=== PATIENT | male | born 1960 | race Caucasian/White ===

== ENCOUNTER 2025-02-01 09:01 | Day surgery (SDC) | payer OTHER ==
[~2025-02-01 09:01] MED LIST: Sodium Chloride 0.9% 10 ML Syringe FLUSH PRN; Sodium Chloride 0.9% 10 ML Syringe FLUSH SCH
[2025-02-01] MEDS: Lactated Ringers 1,000 ML IV SCH (09:25)
[2025-02-01] MEDS: Acetaminophen 325 MG Tab PO ONE (09:28)
[2025-02-01] MEDS: oxyCODONE ER 10 MG TAB.ER PO ONE (09:28)
[2025-02-01] MEDS: Pregabalin 25 MG Cap PO ONE (09:29)
[2025-02-01 09:37] LABS: BASOPHILS ABSOLUTE AUTO 0.1 K/mm3 (0.0-0.2); BASOPHILS PERCENT AUTO 1.2 % (0.0-1.0); EOSINOPHILS ABSOLUTE AUTO 0.5 K/mm3 (0.0-0.4); EOSINOPHILS PERCENT AUTO 6.8 % (0.0-6.0); HEMATOCRIT 41.1 % (42.0-52.0); HEMOGLOBIN 14.2 gm/dl (14.0-18.0); IMMATURE GRAN ABSOLUTE AUTO 0.02 K/mm3 (0.00-0.05); IMMATURE GRAN PERCENT AUTO 0.3 % (0.0-0.4); LYMPHOCYTES ABSOLUTE AUTO 1.5 K/mm3 (1.0-4.8); LYMPHOCYTES PERCENT AUTO 22.4 % (24.0-44.0); MEAN CORPUSCULAR HEMOGLOBIN 30.9 pg (28.0-32.0); MEAN CORPUSCULAR HGB CONC 34.5 g/dl (32.0-36.0); MEAN CORPUSCULAR VOLUME 89.3 fl (83.0-99.0); MEAN PLATELET VOLUME 8.8 fl (9.4-12.4); MONOCYTES ABSOLUTE AUTO 1.1 K/mm3 (0.0-0.8); MONOCYTES PERCENT AUTO 16.7 % (0.0-8.0); NEUTROPHILS ABSOLUTE AUTO 3.6 K/mm3 (1.8-7.7); NEUTROPHILS PERCENT AUTO 52.6 % (41.0-71.0); PLATELET COUNT,PLT 293 K/mm3 (150-400); WHITE BLOOD CELL COUNT,WBC 6.78 K/mm3 (3.9-11.3)
[2025-02-01] MEDS ORDERED: fentaNYL 100 MCG/2 ML SDV ONE (09:38)
[2025-02-01] MEDS ORDERED: Ondansetron 4 MG/2 ML SDV ONE (09:38)
[2025-02-01] MEDS ORDERED: Midazolam 1 MG/ML 2 ML SDV ONE (09:38)
[2025-02-01] MEDS ORDERED: Metoclopramide 10 MG/2 ML SDV ONE (09:38)
[2025-02-01] MEDS ORDERED: ceFAZolin 2 GM Vial ONE (09:39)
[2025-02-01 09:55] LABS: INR 1.07; PROTHROMBIN TIME 11.3 SECONDS (9.7-12.0)
[2025-02-01 09:56] LABS: PTT,PARTIAL THROMBOPLSTIN TIME 31.2 SECONDS (21.7-31.4)
[2025-02-01] MEDS ORDERED: Lactated Ringers 1,000 ML IV ONE (10:45)
[2025-02-01] MEDS: Morphine 8 MG, EPINEPHrine 0.3 MG, Cefuroxime 750 MG, Ketorolac 30 MG, Sodium Chloride ... PRN (11:04)
[2025-02-01] MEDS: Tranexamic Acid 1,000 MG/10 ML Vial ONE (11:10)
[2025-02-01] MEDS: VANCOmycin 1 GM SDV ONE (11:10)
[2025-02-01] MEDS ORDERED: Acetaminophen/oxyCODONE 325-5 MG Tab PO PRN (11:31)
[2025-02-01] MEDS ORDERED: HYDROmorphone 0.5 MG/0.5 ML Syringe IVPUSH ONE (12:00)
[2025-02-01] MEDS: Acetaminophen/HYDROcodone 325-5 MG Tab PO PRN (16:02)
== END 2025-02-01 16:40 | disposition home or self-care (01) ==
LOC: JD.SDS 09:01
PROVIDERS: ATTEND Orthopaedic Surgery
DX: M16.0 Bilateral primary osteoarthritis of hip (principal); E87.5 Hyperkalemia
CPT/HCPCS: 0055T; 27130; 36415; 73501; 85025; 85610; 85730; 97116; 97161; A9270; J0171; J0690; J0697; J1596; J1885; J2250; J2272; J2405; J2765; J3010; J7120; 01214; C1713; C1776; J3490

== ENCOUNTER 2025-06-28 06:00 | Day surgery (SDC) | payer OTHER ==
[2025-06-28 06:13] LABS: BASOPHILS ABSOLUTE AUTO 0.1 K/mm3 (0.0-0.2); BASOPHILS PERCENT AUTO 1.0 % (0.0-1.0); EOSINOPHILS ABSOLUTE AUTO 0.4 K/mm3 (0.0-0.4); EOSINOPHILS PERCENT AUTO 4.1 % (0.0-6.0); IMMATURE GRAN ABSOLUTE AUTO 0.03 K/mm3 (0.00-0.05); IMMATURE GRAN PERCENT AUTO 0.3 % (0.0-0.4); LYMPHOCYTES ABSOLUTE AUTO 1.5 K/mm3 (1.0-4.8); LYMPHOCYTES PERCENT AUTO 15.9 % (24.0-44.0); MEAN PLATELET VOLUME 9.1 fl (9.4-12.4); MONOCYTES ABSOLUTE AUTO 1.6 K/mm3 (0.0-0.8); MONOCYTES PERCENT AUTO 17.3 % (0.0-8.0); NEUTROPHILS ABSOLUTE AUTO 5.7 K/mm3 (1.8-7.7); NEUTROPHILS PERCENT AUTO 61.4 % (41.0-71.0); NRBC ABSOLUTE 0.00 (0.00-0.02); NRBC PERCENT 0.0 % (0.0-0.2); PLATELET COUNT,PLT 301 K/mm3 (150-400); RED BLOOD CELL COUNT 5.66 M/mm3 (4.52-5.90); WHITE BLOOD CELL COUNT,WBC 9.26 K/mm3 (3.9-11.3)
[2025-06-28] MEDS ORDERED: Propofol 200 MG/20 ML SDV ONE ×2 (06:19→07:46)
[2025-06-28] MEDS ORDERED: Midazolam 1 MG/ML 2 ML SDV ONE (06:19)
[2025-06-28] MEDS: Lactated Ringers 1,000 ML IV SCH (06:21)
[2025-06-28] MEDS: oxyCODONE ER 10 MG TAB.ER PO ONE (06:21)
[2025-06-28 06:30] LABS: INR 1.06
[2025-06-28 06:32] LABS: PTT,PARTIAL THROMBOPLSTIN TIME 31.8 SECONDS (21.7-31.4)
[2025-06-28] MEDS ORDERED: fentaNYL 100 MCG/2 ML SDV IVPUSH PRN (06:40)
[2025-06-28] MEDS ORDERED: Ondansetron 4 MG/2 ML SDV IVPUSH PRN (06:40)
[2025-06-28] MEDS ORDERED: Lidocaine 1% 2 ML ONE (07:12)
[2025-06-28] MEDS ORDERED: Ondansetron 4 MG/2 ML SDV ONE (07:12)
[2025-06-28] MEDS ORDERED: Lactated Ringers 1,000 ML ONE (07:39)
[2025-06-28] MEDS: Morphine 8 MG, EPINEPHrine 0.3 MG, Cefuroxime 750 MG, Ketorolac 30 MG, Sodium Chloride ... PRN (08:03)
[2025-06-28] MEDS: Acetaminophen/HYDROcodone 325-5 MG Tab PO PRN (12:08)
== END 2025-06-28 14:20 | disposition home or self-care (01) ==
LOC: JD.SDS 06:00
PROVIDERS: ATTEND Orthopaedic Surgery
DX: M16.12 Unilateral primary osteoarthritis, left hip (principal); Z87.891 Personal history of nicotine dependence
CPT/HCPCS: 0055T; 27130; 36415; 73501; 85025; 85610; 85730; 97116; 97161; 97530; A9270; C1713; C1776; J0171; J0690; J0697; J1885; J2003; J2250; J2272; J2405; J2704; J3373; J7120; 01214